=== PATIENT | male | born 1980 | race African-American/Black ===

== ENCOUNTER 2021-03-30 18:06 | Emergency (ER) | payer OTHER ==
[2021-03-30 18:18] VITALS: BP 134/101; PULSE 78; TEMP 98.4; BMI 31.5
[2021-03-30] MEDS ORDERED: ACETAMINOPHEN INJECTION 100 ML IVPB ONE (18:59)
== END 2021-03-30 20:50 | disposition home or self-care (01) ==
LOC: JERFT 18:06 → JER 18:06 → JERFT 20:50
PROC: 3E0333Z Introduction of Anti-inflammatory into Peripheral Vein, Percutaneous Approach (ICD-10-PCS; principal; 2021-03-30)
DX: R21 Rash and other nonspecific skin eruption (principal)
CPT/HCPCS: 99284-25; C9803; U0003; U0005